=== PATIENT | male | born 1990 | race Caucasian/White ===

== ENCOUNTER 2019-06-11 22:08 | Emergency (ER) | payer SELFPAY ==
--- NOTE | 2019-06-11 22:45 | PHYS DOC ---
Past History Past Medical History: No Pertinent History Past Surgical History: No Surgical History Alcohol Use: None Drug Use: None Adult General Chief Complaint Chief Complaint: ABDOMINAL PAIN HPI HPI Patient is a 29-year-old male presents with left lower quadrant abdominal pain that started this morning, became acutely worse approximately an hour prior to arrival. Reports it is sharp. Waxes and wanes. He has nausea and vomiting with this. No diarrhea. There is radiation into his left testicle. No dysuria. No hematuria. No fever. No previous history of this. Pain is moderate to severe. Nothing makes it better or worse.[] Review of Systems Review of Systems Constitutional: Denies fever or chills [] Eyes: Denies change in visual acuity, redness, or eye pain [] HENT: Denies nasal congestion or sore throat [] Respiratory: Denies cough or shortness of breath [] Cardiovascular: No chest pain or palpitations[] GI: See history of present illness[] : Denies dysuria or hematuria [] Musculoskeletal: Denies back pain or joint pain [] Integument: Denies rash or skin lesions [] Neurologic: Denies headache, focal weakness or sensory changes [] Endocrine: Denies polyuria or polydipsia [] All other systems were reviewed and found to be within normal limits, except as documented in this note. Physical Exam Physical Exam Constitutional: Well developed, well nourished, moderate discomfort, non-toxic appearance. [] HENT: Normocephalic, atraumatic, bilateral external ears normal, oropharynx moist, no oral exudates, nose normal. [] Eyes: PERRLA, EOMI, conjunctiva normal, no discharge. [] Neck: Normal range of motion, no tenderness, supple, no stridor. [] Cardiovascular:Heart rate regular rhythm, no murmur [] Lungs & Thorax: Bilateral breath sounds clear to auscultation [] Abdomen: Bowel sounds normal, soft, mild left lower quadrant tenderness, no rebound, no guarding, no rigidity, no masses, no pulsatile masses. shows a normal male, circumcised, bilateral descended testes, no testicular tenderness to palpation. Normal cremaster reflex.[] Skin: Warm, dry, no erythema, no rash. [] Back: No tenderness, no CVA tenderness. [] Extremities: No tenderness, no cyanosis, no clubbing, ROM intact, no edema. [] Neurologic: Alert and oriented X 3, normal motor function, normal sensory function, no focal deficits noted. [] Psychologic: Affect normal, judgement normal, mood normal. [] Current Patient Data Vital Signs Vital Signs Date Time Temp Pulse Resp B/P (MAP) Pulse Ox O2 Delivery O2 Flow Rate FiO2 06/11/19 22:14 97.9 51 20 100 Room Air EKG EKG [] Radiology/Procedures Radiology/Procedures PROCEDURE: CT ABDOMEN PELVIS WO CONTRAST PQRS Compliance Statement: One or more of the following individualized dose reduction techniques were utilized for this examination: 1. Automated exposure control 2. Adjustment of the mA and/or kV according to patient size 3. Use of iterative reconstruction technique CT abdomen/pelvis without contrast 06/11/2019 10:41 PM INDICATION: Left lower quadrant abdominal pain radiating to the testicle. COMPARISON: None available TECHNIQUE: Multiple axial CT images of the abdomen and pelvis were obtained without intravenous contrast. Coronal and sagittal reformats are provided. FINDINGS: Visualized portions of the lung bases are clear. Heart size is within normal limits. Evaluation of the solid abdominal viscera is limited by lack of intravenous contrast. No suspicious hepatic masses are identified. Spleen, bilateral adrenal glands, and pancreas are normal in appearance. Gallbladder is present without adjacent inflammatory changes. The abdominal aorta is normal in course and caliber. There are no pathologically enlarged lymph nodes in the abdomen and pelvis. There is no abdominal free fluid. There is no free intraperitoneal air. Small and large bowel are normal in caliber. There is no evidence for bowel obstruction. There are no pericolonic inflammatory changes. A normal, nondilated appendix is visualized without adjacent inflammatory changes. There is a 2 mm calculus at the left ureterovesicular junction with mild to moderate hydroureteronephrosis on the left. There are at least 4 nonobstructing calculi in the left kidney measuring up to 3 mm. There are at least 4 nonobstructing calculi in the right kidney measuring up to 3 mm. No right-sided hydronephrosis. Urinary bladder is within normal limits given degree of distention. Prostate and seminal vesicles appear normal. No suspicious osseous normality is identified. Mild anterior wedging is identified at T9, T10 and T11 secondary to Schmorl's nodes. IMPRESSION: 1. 2 mm calculus at the left ureterovesicular junction with mild to moderate left hydroureteronephrosis. 2. Bilateral nonobstructing renal calculi are identified measuring up to 3 mm.[] Course & Med Decision Making Course & Med Decision Making Pertinent Labs and Imaging studies reviewed. (See chart for details) ED course: Patient arrived, was placed in bed, and tolerated exam well. He was transferred to and from radiology without any complications. He was feeling better with the medications administered in the emergency department. After the return of laboratory and imaging findings, these were discussed with the patient and family who voiced understanding. All questions were answered. Patient was discharged in improved condition. Medical decision making: There is no evidence of an infected stone, no evidence of acute renal injury nor significant electrolyte abnormality. No evidence of intractable pain. No evidence of a stone that will not pass.[] Dragon Disclaimer Dragon Disclaimer This electronic medical record was generated, in whole or in part, using a voice recognition dictation system. Departure Departure: Impression: Primary Impression: Left ureteral calculus Disposition: HOME, SELF-CARE Condition: STABLE Referrals: PCP,MERON (PCP) Patient Instructions: Diet for Kidney Stones, Kidney Stones Additional Instructions: Follow-up with your regular doctor in 2 days. If you do not have regular doctor list of local clinics will be provided for you. Drink plenty of fluids. Return to the ER if worsening pain, unable to tolerate liquids, or any other concerns. Scripts Ondansetron Hcl (ZOFRAN) 4 Mg Tablet 1 TAB PO Q6HRS for nausea or vomiting, #20 TAB Prov: TAYLOR JONES DO 06/12/19 Hydrocodone Bit/Acetaminophen (NORCO 5-325 TABLET) 1 Each Tablet 1 TAB PO Q4-6HRS for severe pain, #20 TAB Prov: TAYLOR JONES DO 06/12/19 Meloxicam (MELOXICAM) 7.5 Mg Tablet 7.5 MG PO DAILY for PAIN, #20 TAB Prov: TAYLOR JONES DO 06/12/19 TAYLOR JONES DO Jun 11, 2019 22:45
[2019-06-11 23:02] LABS: BILIRUBIN,URINE NEG (NEG); CLARITY,URINE CLEAR; COLOR,URINE YELLOW; GLUCOSE,URINE NEG (NEG)
[2019-06-11 23:03] LABS: BASO % 0 % (0-3); EOS # 0.1 x10^3/uL (0.0-0.7); EOS % 1 % (0-3); HEMOGLOBIN 15.2 g/dL (13.0-17.5); LYMPH # 1.9 x10^3/uL (1.0-4.8); LYMPH % 15 % (24-48); MEAN CORPUSCULAR HEMOGLOBIN 30 pg (25-35); MEAN CORPUSCULAR HGB CONC 34 g/dL (31-37); MEAN CORPUSCULAR VOLUME 89 fL (79-100); MONO # 0.8 x10^3/uL (0.0-1.1); MONO % 6 % (0-9); NEUT # 9.8 x10^3uL (1.8-7.7); NEUT % 77 % (31-73); PLATELET COUNT 304 x10^3/uL (140-400); RED BLOOD COUNT 5.08 x10^6/uL (4.30-5.70); RED CELL DISTRIBUTION WIDTH 14.1 % (11.5-14.5); WHITE BLOOD COUNT 12.7 x10^3/uL (4.0-11.0)
[2019-06-11 23:03] LABS: NITRITE,URINE NEG (NEG); UROBILINOGEN,URINE 1 mg/dL (0.2 mg/dL)
[2019-06-11 23:04] LABS: BARBITURATES NEG (NEG); BENZODIAZEPINES NEG (NEG); CANNABINOIDS POS (NEG); COCAINE NEG (NEG); METHADONE NEG (NEG); OPIATES NEG (NEG); PHENCYCLIDINE NEG (NEG)
[2019-06-11 23:05] LABS: BACTERIA,URINE FEW /HPF (0-FEW); RBC,URINE >40 /HPF (0-2); SQUAMOUS EPITHELIAL CELL,UR OCC /LPF; WBC,URINE OCC /HPF (0-4)
[2019-06-11 23:06] LABS: AMPHETAMINE/METHAMPHETAMINE NEG (NEG)
[2019-06-11 23:12] LABS: ALBUMIN 4.5 g/dL (3.4-5.0); ALBUMIN/GLOBULIN RATIO 1.2 (1.0-1.7); CALCIUM 9.7 mg/dL (8.5-10.1); CREATININE 1.4 mg/dL (0.7-1.3); GFR 59.9; POTASSIUM 3.7 mmol/L (3.5-5.1); TOTAL BILIRUBIN 0.4 mg/dL (0.2-1.0); TOTAL PROTEIN 8.2 g/dL (6.4-8.2)
[2019-06-11] MEDS ORDERED: KETOROLAC 30 MG/ML VIAL. IV ONE (23:30)
[2019-06-11] MEDS ORDERED: IV NORMAL SALINE 1,000ML 1,000 ML IV SCH (23:30)
[2019-06-11] MEDS ORDERED: PROCHLORPERAZINE 10 MG/2 ML VIAL. IV ONE (23:30)
--- NOTE | 2019-06-11 23:44 | RAD ---
PQRS Compliance Statement: One or more of the following individualized dose reduction techniques were utilized for this examination: 1. Automated exposure control 2. Adjustment of the mA and/or kV according to patient size 3. Use of iterative reconstruction technique CT abdomen/pelvis without contrast 06/11/2019 10:41 PM INDICATION: Left lower quadrant abdominal pain radiating to the testicle. COMPARISON: None available TECHNIQUE: Multiple axial CT images of the abdomen and pelvis were obtained without intravenous contrast. Coronal and sagittal reformats are provided. FINDINGS: Visualized portions of the lung bases are clear. Heart size is within normal limits. Evaluation of the solid abdominal viscera is limited by lack of intravenous contrast. No suspicious hepatic masses are identified. Spleen, bilateral adrenal glands, and pancreas are normal in appearance. Gallbladder is present without adjacent inflammatory changes. The abdominal aorta is normal in course and caliber. There are no pathologically enlarged lymph nodes in the abdomen and pelvis. There is no abdominal free fluid. There is no free intraperitoneal air. Small and large bowel are normal in caliber. There is no evidence for bowel obstruction. There are no pericolonic inflammatory changes. A normal, nondilated appendix is visualized without adjacent inflammatory changes. There is a 2 mm calculus at the left ureterovesicular junction with mild to moderate hydroureteronephrosis on the left. There are at least 4 nonobstructing calculi in the left kidney measuring up to 3 mm. There are at least 4 nonobstructing calculi in the right kidney measuring up to 3 mm. No right-sided hydronephrosis. Urinary bladder is within normal limits given degree of distention. Prostate and seminal vesicles appear normal. No suspicious osseous normality is identified. Mild anterior wedging is identified at T9, T10 and T11 secondary to Schmorl's nodes. IMPRESSION: 1. 2 mm calculus at the left ureterovesicular junction with mild to moderate left hydroureteronephrosis. 2. Bilateral nonobstructing renal calculi are identified measuring up to 3 mm. Electronically signed by: Mildred Garcia MD (06/11/2019 11:42 PM) [facility]
[2019-06-11 23:59] VITALS: BP 136/85
[2019-06-12] MEDS ORDERED: ONDA4TAB7 PO (00:13)
[2019-06-12] MEDS ORDERED: MELO7.5T29 PO (00:13)
[2019-06-12] MEDS ORDERED: HYDR-3165 PO (00:13)
== END 2019-06-12 00:21 | disposition home or self-care (01) ==
LOC: ER 22:08
DX: N13.2 Hydronephrosis with renal and ureteral calculous obstruction (principal); R11.2 Nausea with vomiting, unspecified
CPT/HCPCS: 36415; 74176; 80053; 80307; 81001; 83690; 85025; 96361; 96374; 96375; 99285; J0780; J1885; J7030